=== PATIENT | female | born 1930 | race Caucasian/White ===

== ENCOUNTER 2017-03-02 01:46 | Emergency (ER) | payer MEDICARE, OTHER ==
[~2017-03-02] VITALS: Ht 160 cm; Wt 61.0 kg
--- NOTE | 2017-03-02 01:50 | ED.REPORT ---
HPI-General Illness Date of Service Mar 02, 2017 ED Provider: Vincent Garcia MD The pt is a 86 y/o female presenting to the ED via EMS due to dizziness. The pt reports being unable to fall asleep earlier tonight or stand w/o feeling dizzy and lightheaded. She is also experiencing nausea. The pt suspects she is experiencing a CVA and she reports multiple family members of hers having strokes in the past. Denies vomiting or diarrhea. EMS reports the pts vitals being normal when they arrived besides a BP of 160 and her being able to walk to the [facility]. 4 mg of Zofran was administered by EMS. They also report today being the first day she has taken dicyclomine for her IBS. Nursing Notes Stated Complaint: GENERAL WEAKNESS Chief Complaint: Dizziness Nursing Notes Reviewed: Yes Allergies: Coded Allergies: No Known Allergies (Unverified , 03/02/17) General Time Seen by MD: 01:50 Chief Complaint Dizziness Hx Obtained From: Patient, EMS Sudden in Onset?: Yes Onset Occurred: Just prior to arrival Symptom Duration: Since onset Recent Healthcare: No recent doctor visit, No recent hospitalization Past Medical History Past Medical History None reported Past Surgical History None reported Social History None reported Ambulatory Status Independent Review of Systems Full Review of Systems GI: Reports: Nausea, Denies: Diarrhea, Vomiting Neurologic: Reports: Dizziness, Lightheaded Complete sys rev & neg: except as marked. Physical Exam Vital Signs Vital Signs Date Time Temp Pulse Resp B/P Pulse Ox O2 Delivery O2 Flow Rate FiO2 03/02/17 04:25 36.7 72 16 137/56 98 Room Air 03/02/17 01:53 36.9 64 16 154/59 100 Room Air Initial VS: Reviewed, Vital signs normal Head / Eyes: Atraumatic, Normocephalic, PERRL Neck: Supple, Non-tender, Full range of motion Respiratory: Breath sounds normal, Clear to auscultation, No respiratory distress Cardiovascular: Regular rate & rhythm, Heart sounds normal, Intact distal pulses Abdomen / GI: Soft, Non-tender Extremities: Vascular intact, Neuro intact, No swelling, No tenderness Neurologic: Alert, Oriented, Nonfocal Psychiatric: Mood/affect normal, Behavior normal, Normal thought content General/Constitutional: Awake, Alert Appearance / Presentation: Positive: Pale ENT: Airway patent Lips appear dry Skin: No rash, Warm, Dry, Intact Interpretation & Diagnostics Lab Results Interpretation Result Diagram: 03/02/17 0200 03/02/17 0200 Test 03/02/17 02:00 03/02/17 03:05 White Blood Count 6.4th/mm3 (3.8-10.1) Red Blood Count 3.94mil/mm3 (3.90-5.20) Hemoglobin 12.3g/dL (12.0-15.6) Hematocrit 35.9% (35.0-46.0) Mean Corpuscular Volume 91.1fL (81-100) Mean Corpuscular Hemoglobin 31.2pg (27.0-35.0) Mean Corpuscular Hemoglobin Concent 34.3% (32.0-37.0) Red Cell Distribution Width 12.3% (12.3-15.4) Platelet Count 294bil/L (150-400) Neutrophils (%) (Auto) 48.8% (40-74) Lymphocytes (%) (Auto) 31.5% (14-46) Monocytes (%) (Auto) 9.8% (4-12) Eosinophils (%) (Auto) 8.1% (0-5) Basophils (%) (Auto) 1.6% (0-3) Sodium Level 137mEq/L (134-144) Potassium Level 4.2mEq/L (3.5-5.2) Chloride Level 102mEq/L (97-108) Carbon Dioxide Level 24mmol/L (18-29) Blood Urea Nitrogen 21mg/dL (8-27) Creatinine 0.82mg/dL (0.57-1.00) Estimat Glomerular Filtration Rate 95mL/min (>59) Glucose Level 105mg/dL (60-99) Calcium Level 8.9mg/dL (8.5-10.1) Magnesium Level 2.3mg/dL (1.6-2.6) Total Bilirubin 0.2mg/dL (0.0-1.2) Aspartate Amino Transf (AST/SGOT) 17U/L (0-50) Alanine Aminotransferase (ALT/SGPT) 12U/L (0-32) Alkaline Phosphatase 73U/L (25-165) Troponin T < 0.010ug/L (0.0-0.011) Total Protein 6.4g/dL (6.4-8.4) Albumin 3.7g/dL (3.4-5.0) Urine Color Yellow (YELLOW) Urine Appearance Hazy (CLEAR,HAZY) Urine pH 7.0 (5.0-8.0) Urine Specific [place] 1.010 (1.003-1.035) Urine Protein Negativemg/dL (NEG,TRACE) Urine Glucose (UA) Negativemg/dL (NEGATIVE) Urine Ketones Negativemg/dL (NEGATIVE) Urine Occult Blood Negative (NEGATIVE) Urine Nitrite Negative (NEGATIVE) Urine Bilirubin Negative (NEGATIVE) Urine Urobilinogen Normalmg/dL (NORMAL) Urine Leukocyte Esterase Moderate (NEGATIVE) Urine RBC 0-2/hpf (0-2) Urine WBC 6-10/hpf (0-5) Urine Epithelial Cells Few/hpf (NONE-MOD) Urine Crystals None seen (NONE SEEN) Urine Bacteria Few/hpf (NONE-FEW) Urine Hyaline Casts None/lpf (NONE) Urine Granular Casts None seen (NONE SEEN) Urine Waxy Casts None seen (NONE SEEN) Urine Red Blood Cell Casts None seen (NONE SEEN) Urine White Blood Cell Casts None seen (NONE SEEN) Urine Mucus None seen (None Seen) Urine Trichomonas None seen (NONE SEEN) Urine Yeast None (NONE SEEN) Urinalysis Comment None Urine Culture Reflexed Indicated Lab Results Interpretation: 6-10 WBC per hpf and positive leukocyte esterase, culture pending Re-Eval/Medical Decision Med Decision/Clinical Course No obvious explanation for the patient's symptoms. She does have 6-10 WBC per high-power field, culture pending. We will treat empirically for UTI and await culture. Time of Eval: 03:48 Re-Evaluation/Progress Note: Pt rechecked. The pt states that she has had many UTIs in the past and her symptoms that she is experiencing today are much different that the symptoms she experienced then. Time of Eval: 04:26 Re-Evaluation/Progress Note: Pt rechecked. Informed pt of plan for treatment. Pt understands and agrees with plan for treatment. F/U instructions and RTER warnings given. All questions addressed. Counseled Regarding: Diagnosis, Lab results, Need for follow-up, When/why to return to ED Discharge & Departure Primary Impression: Nausea Additional Impression: Urinary tract infection Urinary tract infection type: acute cystitis Hematuria presence: without hematuria Qualified Code: N30.00 - Acute cystitis without hematuria Disposition: Home Discharge Condition All VS Reviewed: Yes Condition: Stable Patient Instructions: Urinary Tract Infection in Women (ED) Additional Instructions: It appears that you still have a urinary tract infection, culture pending. Nitrofurantoin (Macrobid) 1 pill twice daily until gone, #20 prescription dispensed. Ondansetron 4 mg ODT, 1 dissolved orally 4 times daily as needed for nausea and vomiting, prepack dispensed. Drink plenty of fluids. Follow-up with your regular doctor as needed for persistent symptoms. Scribe Attestation Portions of this note were transcribed by Dillan Jimenez. I, Dr. Kaur personally performed the history, physical exam and medical decision-making; I reviewed and confirmed the accuracy of the information in the transcribed note. Jose Kaur MD Mar 02, 2017 01:50 Dillan Jimenez Mar 02, 2017 02:19
[2017-03-02 01:53] VITALS: BP 154/59; PULSE 64; RESP 16; O2SAT 100
[2017-03-02] MEDS ORDERED: Ondansetron 2 mg/mL 2 mL Inj IV PRN (01:55)
[2017-03-02 02:13] LABS: BASOPHILS % (AUTO) 1.6 % (0-3); EOSINOPHILS % (AUTO) 8.1 % (0-5); MONOCYTES % (AUTO) 9.8 % (4-12); Mean Corpuscular Hemoglobin 31.2 pg (27.0-35.0); Mean Corpuscular Volume 91.1 fL (81-100); NEUTROPHILS % (AUTO) 48.8 % (40-74); Platelet Count 294 bil/L (150-400)
[2017-03-02 02:47] LABS: TROPONIN T < 0.010 ug/L (0.0-0.011)
[2017-03-02 02:56] LABS: Magnesium 2.3 mg/dL (1.6-2.6)
[2017-03-02 03:19] LABS: APPEARANCE,URINE HAZY (CLEAR,HAZY); COLOR,URINE YELLOW (YELLOW); OCCULT BLOOD,URINE NEGATIVE (NEGATIVE); UROBILINOGEN,URINE NORMAL (NORMAL)
[2017-03-02] MEDS ORDERED: _Ondansetron ODT 4 mg Tablet PO PRN (04:00)
[2017-03-02 04:25] VITALS: BP 137/56; PULSE 72; RESP 16; O2SAT 98
[2017-03-02] MEDS ORDERED: _Nitrofurantoin Macrocrystal 100 mg Capsule PO SCH (08:30)
== END 2017-03-02 04:34 | disposition home or self-care (01) ==
LOC: SED 01:46
DX: R11.0 Nausea (principal); N30.00 Acute cystitis without hematuria; K58.9 Irritable bowel syndrome, unspecified